=== PATIENT | female | born 1955 | race Caucasian/White ===

== ENCOUNTER → 2017-02-03 | Day surgery (SDC) | payer OTHER ==
[~2017-02-03] MED LIST: LIDOCAINE 2%/EPI 1:100,000 20 ML VIAL. IJ ONE
--- NOTE | 2017-02-04 15:25 | PATHOLOGY ---
PATHOLOGY REPORT * * * * * * * * FINAL DIAGNOSIS: Skin, left lower extremity: - Dermatofibroma, hemosiderotic variant; involving both side margins, the deep margin and one tip excision. There is no evidence of malignancy. - Overlying reactive pigmented epidermal hyperplasia. (SAS:[facility]; d/t: 02/04/2017) REPORT ELECTRONICALLY SIGNED BY: Lady Orozco M.D., Dermatopathologist DATE/TIME: 02/04/2017 15:24 * * * * * * * * GROSS PATHOLOGY: The specimen is received in formalin labeled "Charisse Leonardo, skin lesion left lower extremity". Received is an ellipse of pale burks, glistening skin with attached yellow-burks fibroadipose tissue measuring 1.3 x 0.5 x 0.9 cm in greatest dimensions. The surgical margin is inked. The specimen is sectioned into four pieces and entirely submitted in cassettes A1 and A2, with the tips placed in cassette A2. ([facility]; 02/03/2017) INITIAL CPT CODE(S): A; 33649 Professional services performed by [facility], [address] [place] [address]. Technical services performed by [facility] at [address] [place] [address]. SPECIMEN(S) RECEIVED: A.Skin lesion left lower extremity CLINICAL HISTORY: Skin lesion left lower extremity PATIENT: CHARISSE LEONARDO /AGE: 403/03/1955 (Age: 61) PATIENT #: [id number] ALT CASE #: SPECIMEN COLLECTION DATE: 02/03/2017 SPECIMEN RECEIVED DATE: 02/03/2017 [facility] - [address] [place] [address] - PHONE: [phone] * * * END OF REPORT * * *
--- NOTE | 2017-02-11 16:06 | PDOC ---
BRIEF OPERATIVE NOTE Date: Feb 03, 2017 Pre-Op Diagnosis skin lesion LLE Post-Op Diagnosis same Procedure Performed excision Surgeon Jered Anesthesia Type: Local Specimens Obtained skin and subcutaneous tissue Additional Remarks Wk # [id number] DULCE MENA MD Feb 11, 2017 16:06
--- NOTE | 2017-02-11 19:40 | OP ---
DATE OF SURGERY: 02/03/2017 PREOPERATIVE DIAGNOSIS: Skin lesion, left lower extremity. POSTOPERATIVE DIAGNOSIS: Skin lesion, left lower extremity. PROCEDURE: Excision of same. SURGEON: Dulce Mena M.D. ANESTHESIA: Local. INDICATIONS: The patient is a 61-year-old with a skin lesion on the mid portion of her left lower extremity, medial side. She is here for excision. DESCRIPTION OF PROCEDURE: The patient was taken to the monitor room. The consent was obtained and the area was prepped and draped in usual sterile fashion. An elliptical incision was outlined with a marking pen and infiltrated with 1% lidocaine with epinephrine, the lesion was sharply excised. Hemostasis with cautery. Wound was closed with interrupted 4-0 Monocryl sutures. Steri-Strips and sterile dressing applied. The patient tolerated well. We will follow next week. DULCE MENA MD DR: KAIA/george JOB#: [id number] / [id number]
== END | disposition home or self-care (01) ==
LOC: SURG 11:07
PROVIDERS: ATTEND Surgery
DX: L98.8 Other specified disorders of the skin and subcutaneous tissue (principal)
CPT/HCPCS: 88305; J3490

== ENCOUNTER → 2018-04-08 | Outpatient (CLI) | payer OTHER ==
[2018-04-08 11:15] LABS: ADD MAN DIFF? NO
[2018-04-08 11:27] LABS: BILIRUBIN,URINE NEGATIVE (NEG); CLARITY,URINE CLEAR; COLOR,URINE YELLOW; GLUCOSE,URINE NEGATIVE (NEG); PROTEIN,URINE NEGATIVE (NEG-TRACE); UROBILINOGEN,URINE 0.2 mg/dL (0.2 mg/dL)
[2018-04-08 11:28] LABS: NITRITE,URINE NEGATIVE (NEG)
[2018-04-08 11:29] LABS: BASO # 0.1 x10^3/uL (0.0-0.2); BASO % 1 % (0-3); EOS # 0.3 x10^3/uL (0.0-0.7); EOS % 5 % (0-3); LYMPH # 2.4 x10^3/uL (1.0-4.8); LYMPH % 36 % (24-48); MEAN CORPUSCULAR HEMOGLOBIN 27 pg (25-35); MEAN CORPUSCULAR HGB CONC 33 g/dL (31-37); MEAN CORPUSCULAR VOLUME 81 fL (79-100); MONO # 0.5 x10^3/uL (0.0-1.1); MONO % 8 % (0-9); NEUT # 3.3 x10^3uL (1.8-7.7); NEUT % 50 % (31-73); PLATELET COUNT 278 x10^3/uL (140-400); RED BLOOD COUNT 5.19 x10^6/uL (3.50-5.40); WHITE BLOOD COUNT 6.7 x10^3/uL (4.0-11.0)
[2018-04-08 11:44] LABS: ALBUMIN 3.6 g/dL (3.4-5.0); ALBUMIN/GLOBULIN RATIO 0.9 (1.0-1.7); ALK PHOS 133 U/L (46-116); ALT (SGPT) 36 U/L (14-59); ANION GAP 3 (6-14); AST (SGOT) 22 U/L (15-37); BLOOD UREA NITROGEN 11 mg/dL (7-20); BUN/CREATININE RATIO 14 (6-20); CARBON DIOXIDE 29 mmol/L (21-32); CHLORIDE 96 mmol/L (98-107); CHOLESTEROL 218 mg/dL (0-200); CREATININE 0.8 mg/dL (0.6-1.0); GFR 72.4; GLUCOSE 98 mg/dL (70-99); HDLC 82 mg/dL (40-60); LDLC 127 mg/dL (0-100); NON-HDL CHOLESTEROL 136 mg/dL (0-129); POTASSIUM 3.9 mmol/L (3.5-5.1); SODIUM 128 mmol/L (136-145); TOTAL BILIRUBIN 0.6 mg/dL (0.2-1.0); TOTAL PROTEIN 7.5 g/dL (6.4-8.2); TRIGLYCERIDES 45 mg/dL (0-150); VLDLC 9 mg/dL (0-40)
[2018-04-08 11:50] LABS: CHOLESTEROL/HDL RATIO 2.7
[2018-04-08 11:54] LABS: FREE T4 1.05 ng/dL (0.76-1.46)
[2018-04-08 11:54] LABS: THYROID STIM HORMONE (TSH) 0.169 uIU/mL (0.358-3.74)
[2018-04-08 12:15] LABS: BACTERIA,URINE 0 /HPF (0-FEW); RBC,URINE 0 /HPF (0-2); SQUAMOUS EPITHELIAL CELL,UR MANY /LPF; WBC,URINE 0 /HPF (0-4)
== END | disposition home or self-care (01) ==
LOC: LAB 11:03
DX: Z00.01 Encounter for general adult medical examination with abnormal findings (principal); R79.89 Other specified abnormal findings of blood chemistry
CPT/HCPCS: 36415; 80053; 80061; 81001; 83520; 84439; 84443; 85025; 87086

== ENCOUNTER → 2021-07-19 | Outpatient (CLI) | payer MEDICARE ==
--- NOTE | 2021-07-20 09:52 | CARD ---
MR#: [id number] Date of Study: 07/19/2021 Ordering Physician: THEO BENJAMIN, Referring Physician: THEO BENJAMIN, Tech: Claudia Busby, [facility] APPROVED REPORT EXAM: Two-dimensional and M-mode echocardiogram with Doppler and color Doppler. Other Information Quality : AverageHR: 64bpm INDICATION Peripheral Edema Venous Insufficiency 2D DIMENSIONS RVDd3.2 (2.9-3.5cm)Left Atrium(2D)2.7 (1.6-4.0cm) IVSd1.2 (0.7-1.1cm)Aortic Root(2D)2.9 (2.0-3.7cm) LVDd4.4 (3.9-5.9cm)LVOT Diameter2.1 (1.8-2.4cm) PWd1.1 (0.7-1.1cm)LVDs2.8 (2.5-4.0cm) FS (%) 36.7 %SV58.3 ml LVEF(%)66.7 (>50%) Aortic Valve AoV Peak Mendel.115.5cm/sAoV VTI28.2cm AO Peak GR.5.3mmHgAO Mean GR.3mmHg Mitral Valve MV E Uqchgioy08.5cm/sMV DECEL EJUM611is MV A Hwqjpmgv44.3cm/sMV E Mean Gr.1mmHg MV YBK38qxF/A Ratio1.0 MVA (PHT)3.08cm2 TDI E/Lateral E'8.2E/Medial E'10.0 Pulmonary Valve PV Peak Xismxokz91.1cm/sPV Peak Grad.2mmHg Tricuspid Valve TR P. Hxdlrvbt467ru/sTR Peak Gr.21mmHg Pulmonary Vein S1 Cexkjjnu81.4cm/sD2 Xlwdzufg12.9cm/s PVa [id number] LEFT VENTRICLE The left ventricle is normal size. There is mild concentric left ventricular hypertrophy. The left ve ntricular systolic function is normal. The Ejection Fraction is 55-60%. There is normal LV segmental wall motion. Transmitral Doppler flow pattern is Grade II-pseudonormal filling dynamics. RIGHT VENTRICLE The right ventricle is normal size. There is normal right ventricular wall thickness. The right ventr icular systolic function is normal. ATRIA The left atrium size is normal. The right atrium size is normal. The interatrial septum is intact wit h no evidence for an atrial septal defect or patent foramen ovale as noted on 2-D or Doppler imaging. AORTIC VALVE The aortic valve is normal in structure and function. Doppler and Color Flow revealed trace aortic re gurgitation. Calculated aortic valve area is 3.5 cm2 with maximum pressure gradient of 7 mmHg and haydee n pressure gradient of 3 mmHg. There is no significant aortic valvular stenosis. MITRAL VALVE The mitral valve is normal in structure and function. There is no evidence of mitral valve prolapse. There is no mitral valve stenosis. Doppler and Color-flow revealed trace mitral regurgitation. TRICUSPID VALVE The tricuspid valve is normal in structure and function. Doppler and Color Flow revealed trace tricus pid regurgitation with an estimated PAP of 29 mmHg. There is no tricuspid valve stenosis. PULMONIC VALVE The pulmonic valve is not well visualized. Doppler and Color Flow revealed trace pulmonic valvular re gurgitation. GREAT VESSELS The aortic root is normal in size. The ascending aorta is Mildly dilated measuring 3.65 cm. The IVC i s normal in size and collapses >50% with inspiration. PERICARDIAL EFFUSION There is no evidence of significant pericardial effusion. Critical Notification Critical Value: No <Conclusion> The left ventricular systolic function is normal. The Ejection Fraction is 55-60%. There is normal LV segmental wall motion. Transmitral Doppler flow pattern is Grade II-pseudonormal filling dynamics. Trace mitral regurgitation. Trace tricuspid regurgitation with an estimated PAP of 29 mmHg. There is no evidence of significant pericardial effusion. Signed by : Theo Benjamin, Electronically Approved : 07/20/2021 09:52:00
== END ==
LOC: ECHO 14:57
PROVIDERS: ATTEND Internal Medicine Cardiovascular Disease
DX: I51.7 Cardiomegaly (principal); I77.819 Aortic ectasia, unspecified site; I87.2 Venous insufficiency (chronic) (peripheral)
CPT/HCPCS: 93306

== ENCOUNTER → 2021-08-07 | Outpatient (CLI) | payer MEDICARE ==
--- NOTE | 2021-08-07 15:04 | RAD ---
MR#: [id number] Date of Study: 08/07/2021 Ordering Physician: THEO XIONG, Referring Physician: THEO XIONG, Tech: Leo Ng MBA, RDMS, RVT, RDCS, RTR APPROVED REPORT Bilateral Lower Extremity Venous Study for Venous Competence Patient Location: OUT-PATIENT Indications chronic venous insufficiency Findings The right great saphenous vein measures 5.1 mm and does not show any evidence of reflux. The left great saphenous vein has been previously ablated. The bilateral lesser saphenous veins did not reveal any evidence of reflux Critical Notification Critical Value: No <Conclusion> 1. Negative for reflux in the right greater saphenous vein. Left greater saphenous vein is ablated. 2. Negative for reflux in the bilateral lesser saphenous veins Signed by : Kvng Padron, Electronically Approved : 08/07/2021 15:04:25
== END ==
LOC: US 13:11
PROVIDERS: ATTEND Internal Medicine Cardiovascular Disease
DX: I87.2 Venous insufficiency (chronic) (peripheral) (principal)
CPT/HCPCS: 93970